=== PATIENT | female | born 1950 | race Caucasian/White ===

== ENCOUNTER 2020-04-09 01:29 | Inpatient (IN) | payer OTHER ==
[2020-04-09] VITALS (8 sets, daily range): BP systolic 107–228; BP diastolic 47–75
[~2020-04-09] VITALS: Ht 162.6 cm; Wt 99.8 kg
[2020-04-09 02:34] LABS: ABSOLUTE NEUTROPHILS 6.7 thou/uL (1.4-8.2); BASOPHILS 0.4 % (0.0-2.0); HEMATOCRIT 26.5 % (37.0-47.0); HEMOGLOBIN 8.6 gm/dL (12.0-15.0); LYMPHOCYTES 11.8 % (24.0-44.0); MCH 25.8 pg (26.0-34.0); MCHC 32.5 g/dL (28.0-37.0); MCV 79.2 fL (80.0-100.0); MONOCYTES 7.8 % (1.0-8.0); PLATELET COUNT 187 thou/uL (150-400); RBC 3.35 mil/uL (4.20-5.00); RDW 18.1 % (10.5-14.5); WBC 8.5 thou/uL (4.0-11.0)
[2020-04-09 02:43] LABS: ANION GAP 10 mmol/L (7-16); BUN 32 mg/dL (7-18); CALCIUM 8.1 mg/dL (8.5-10.1); CHLORIDE 108 mmol/L (98-107); CO2 25 mmol/L (21-32); CREATININE 2.6 mg/dL (0.6-1.0); GLUCOSE 115 mg/dL (74-106); POTASSIUM 4.1 mmol/L (3.5-5.1); SODIUM 143 mmol/L (136-145)
[2020-04-09 02:53] LABS: ALBUMIN 2.3 g/dL (3.4-5.0); DIRECT BILIRUBIN < 0.1 mg/dL (<0.1-0.2); SGOT 23 U/L (15-37); SGPT 25 U/L (30-65); TOTAL BILIRUBIN 0.2 mg/dL (0.2-1.0); TOTAL PROTEIN 6.6 g/dL (6.4-8.2); TROPONIN-I <0.06 ng/mL (<0.06)
[2020-04-09] MEDS ORDERED: TIZANIDINE4 MG/1 TA1 PO (04:00)
[2020-04-09] MEDS ORDERED: AMLODIPINE BESY10 MG PO (04:01)
[2020-04-09] MEDS ORDERED: EUTHYROX50 MCG PO (04:01)
[2020-04-09] MEDS ORDERED: HYDROCODON-ACE1 EAC7 PO (04:01)
[2020-04-09] MEDS ORDERED: BUMEX2 MG PO (04:02)
[2020-04-09] MEDS ORDERED: K-DUR 20 MEQ T20 MEQ PO (04:34)
[2020-04-09] MEDS ORDERED: LOSARTAN POTAS100 MG PO (04:34)
--- NOTE | 2020-04-09 16:56 | NUR ---
PATIENT ARRIVED FROM ED VIA W/C, ALERT AND ORIENTED X4.BP ELEVATED, OTHER VSS. DR PLUMMER SEEN PATIENT, AND PATIENT BP MEDS RESUMED AND PRN BP MEDS GIVEN. ADMISION COMPLETED AND NEW POC INITIATED.
[2020-04-10 00:09] VITALS: BP 176/70
[2020-04-10 04:40] VITALS: BP 178/66
[2020-04-10 05:51] LABS: HEMATOCRIT 24.2 % (37.0-47.0); HEMOGLOBIN 7.9 gm/dL (12.0-15.0); MCH 25.9 pg (26.0-34.0); MCHC 32.7 g/dL (28.0-37.0); MCV 79.3 fL (80.0-100.0); RBC 3.05 mil/uL (4.20-5.00); WBC 7.7 thou/uL (4.0-11.0)
[2020-04-10 05:58] LABS: CALCIUM 7.9 mg/dL (8.5-10.1); CREATININE 2.8 mg/dL (0.6-1.0); MAGNESIUM 1.9 mg/dL (1.8-2.4); POTASSIUM 3.7 mmol/L (3.5-5.1)
[2020-04-10 07:30] VITALS: BP 173/85
--- NOTE | 2020-04-10 09:12 | 2DMMODE ---
[facility] [place] [address] 2 D/M-MODE ECHOCARDIOGRAM Name: BRAYAN BARRIOS Room #: 200-I ADM IN M.R.#: [id number] Admission: 04/09/20 Attend Phys: Slime Wright Discharge: Date of : 46 Report #: [id number] THIS REPORT FOR: cc: [facility] - Clinic physician unknown [facility] - Clinic physician unknown Joo Bah MD [facility] ~ APPROVED REPORT Study performed: 04/09/2020 11:18:23 EXAM: Comprehensive 2D, Doppler, and color-flow Echocardiogram Patient Location: In-Patient Room #: 200 Status: routine BSA: 2.06 HR: 80 bpm BP: 196/64 mmHg Rhythm: NSR Other Information Study Quality: Good Risk Factors: Cardiac Risk Factors: HTN, Diabetes (insulin) 2D Dimensions RVDd: 39.04 mm IVSd: 14.77 (7-11mm) LVOT Diam: 18.37 (18-24mm) LVDd: 54.19 mm PWd: 13.42 (7-11mm) Ascending Ao: 28.03 (22-36mm) LVDs: 23.22 (25-40mm) Left Atrium: 46.88 (27-40mm) Aortic Root: 25.90 mm Volumes Left Atrial Volume (Systole) Single Plane 4CH: 73.98 mL Single Plane 2CH: 53.45 mL Aortic Valve AoV Peak Pasquale.: 2.26 m/s AO Peak Gr.: 20.34 mmHg AO Mean Gr.: 9.38 mmHg AO V2 Mean: 1.43 m/s AO V2 VTI: 45.61 cm [facility] [address] [place] [address] 2 D/M-MODE ECHOCARDIOGRAM Name: BRAYAN BARRIOS Room #: 200-I [facility] IN [facility].#: [id number] Admission: 04/09/20 Attend Phys: Slime Bowman Oct Discharge: Date of : 46 Report #: [id number] Mitral Valve E/A Ratio: 1.1 MV Decel. Time: 268.78 ms MV E Max Pasquale.: 1.44 m/s MV A Pasquale.: 1.33 m/s MV PHT: 77.95 ms Pulmonary Valve PV Peak Pasquale.: 1.56 m/s PV Peak Gr.: 9.83 mmHg MO End Vmax: 1.24 m/s Pulmonary Vein P Vein S: 0.85 m/s P Vein D: 0.76 m/s P Vein S/D Ratio: 1.12 Tricuspid Valve TR Peak Pasquale.: 3.23 m/s TR Peak Gr.: 41.82 mmHg Left Ventricle Left ventricle is borderline dilated. Mild to moderate concentric left ventricular hypertrophy. The left ventricular systolic function is normal. The left ventricular ejection fraction is within the normal range. LVEF is 60-65%. Grade I - abnormal relaxation pattern. Right Ventricle The right ventricle is normal size. The right ventricular systolic function is normal. Atria Left atrium is moderately dilated. Right atrium size is normal. Aortic Valve The aortic valve is normal in structure. No aortic regurgitation is present. There is no aortic valvular stenosis. Mitral Valve The mitral valve is normal in structure. Trace to mild mitral regurgitation. No evidence of mitral valve stenosis. Tricuspid Valve The tricuspid valve is normal in structure. Mild tricuspid [facility] [address] [place] [address] 2 D/M-MODE ECHOCARDIOGRAM Name: BRAYAN BARRIOS Room #: 200-I [facility] IN M.R.#: [id number] Admission: 04/09/20 Attend Phys: Slime Ramos Discharge: Date of : 46 Report #: [id number] regurgitation. Estimated PAP 51 mmHg. Pulmonic Valve The pulmonary valve is normal in structure. Trace pulmonic regurgitation. Great Vessels The aortic root is normal in size. IVC is normal in size and collapses <50% with inspiration. Pericardium Mild to Moderate circumferential pericardial effusion. There is variation in mitral and tricuspid inflows and IVC appears partially responsive. No diastolic collapse of the RV free wall. <Conclusion> Left ventricle is borderline dilated. Mild to moderate concentric left ventricular hypertrophy. LVEF is 60-65%. Grade I - abnormal relaxation pattern. The right ventricle is normal size. Left atrium is moderately dilated. The aortic valve is normal in structure. Trace to mild mitral regurgitation. Mild tricuspid regurgitation. Estimated PAP 51 mmHg. The aortic root is normal in size. Mild to Moderate circumferential pericardial effusion. There is variation in mitral and tricuspid inflows and IVC appears partially responsive. No diastolic collapse of the RV free wall. <ELECTRONICALLY SIGNED> By: Joo Bah MD, FACC 04/10/20911 1 1 Joo Bah MD, FACC /INF
[2020-04-10 11:16] LABS: URINE BILIRUBIN NEGATIVE (Negative); URINE BLOOD NEGATIVE (Negative); URINE CLARITY CLEAR; URINE COLOR YELLOW; URINE GLUCOSE-RANDOM* NEGATIVE (Negative); URINE KETONES NEGATIVE (Negative); URINE LEUKOCYTES NEGATIVE (Negative); URINE NITRITE NEGATIVE (Negative); URINE PROTEIN (DIPSTICK) 3+ (Negative); URINE SPECIFIC GRAVITY 1.025 (1.005-1.035); URINE UROBILINOGEN 0.2 E.U./dl (0.2-1.0)
[2020-04-10 11:22] LABS: URINE CREATININE-RANDOM* 83.8 mg/dL; URINE PROTEIN-RANDOM* 321.9 mg/dL (<11.9)
[2020-04-10 12:35] LABS: FINE GRANULAR CASTS 0-3 Few /LPF (None Seen); SQUAMOUS >10 Many /LPF (0-3)
[2020-04-10 12:36] VITALS: BP 177/83
[2020-04-10 12:37] LABS: CRYSTALS None Seen /LPF (None Seen); URINE RBC None Seen /HPF (0-2); URINE WBC 0-5 Rare /HPF (0-5)
[2020-04-10 12:38] LABS: BACTERIA 1-9 Few /HPF (None Seen)
--- NOTE | 2020-04-10 15:06 | NUR ---
ASSUMED CARE AT SHIFT CHANGE, ALERT AND ORIENTED X4. SR ON THE MONIROT SBP REMAINS 170, AND DR PLUMMER AND WILLIE ARE AWARE, AND MEDS ADJUSTED. DENIES ANY DISCOMFORT,WILL CONTINUE WITH POC AND MONITOR BP.
[2020-04-10 16:04] VITALS: BP 149/74
[2020-04-10 20:08] VITALS: BP 159/66
--- NOTE | 2020-04-11 05:08 | NUR ---
PT IS ALERT AND ORIENTED X4. LUNG ARE CLEAR TO DIMIISHED. ABDOMEN IS ROUND AND SOFT. USES CANE TO BATHROOM WITH MINIMAL ASSISTANCE NEEDED. DENIES ANY PAIN ISSUES. PT HAS 2 -3 PLUS BILATERAL PEDAL EDEMA NOTED. PT FEELS THOUGH HER EDEMA IS GOING DOWN WITH LASIX SHE IS GETTING. BLOOD PRESSURE HAS IMPORVED. CALL LIGHT WITHIN REACH IF NEEDS ASSISTANCE.
[2020-04-11 05:55] VITALS: BP 170/56
[2020-04-11 06:08] LABS: CREATININE 3.3 mg/dL (0.6-1.0); PHOSPHORUS 5.3 mg/dL (2.5-4.9); POTASSIUM 3.5 mmol/L (3.5-5.1)
[2020-04-11 07:20] VITALS: BP 169/65
--- NOTE | 2020-04-11 08:00 | EKG ---
[facility] [place] [address] ELECTROCARDIOGRAM REPORT Name: BRAYAN BARRIOS Room #: 200-I ADM IN M.R.#: [id number] Admission: 04/09/20 Attend Phys: Slime Wright Discharge: Date of : 46 Report #: [id number] THIS REPORT FOR: cc: [facility] - Clinic physician unknown [facility] - Clinic physician unknown Pratik Mcleod MD [facility] ~ THIS REPORT FOR: //name// 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
[2020-04-11 11:45] VITALS: BP 146/58
[2020-04-11 15:30] VITALS: BP 158/77
--- NOTE | 2020-04-11 16:51 | NUR ---
ASSUMED CARE PT SHIFT CHANGE. ASSESSMENTS CHARTED.MEDS GIVEN PER OCT. PT ALERT AND ORIENTED. VSS. DENIES PAIN. O2 SATS WNL ON ROOM AIR. PT UP INDEPENDENT TOLERATING WELL.
--- NOTE | 2020-04-11 17:10 | NUR ---
ASSUMED CARE PT SHIFT CHANGE. ASSESSMENTS CHARTED. MEDS GIVEN PER OCT. PT ALERT AND ORIENTED.VSS. DENIES PAIN. O2 SATS WNL ON RA. DENIES SOB. PT UP INDEPENDENT TOLERATING WELL. 24 HR URINE ORDERED, PT UNDERSTANDING AND FOLLOWING. PT DIURESING APPROPRIATELY. SPOUSE VISITED WITH PT AT BEDSIDE. PT CURRENTLY RESTING UP IN CHAIR, DENIES NEEDS. WILL CONTINUE TO MONITOR. WILL PASS ON REPORT TO SHARYN ALTMAN.
[2020-04-11 19:30] VITALS: BP 149/52
[2020-04-12 03:30] VITALS: BP 166/72
--- NOTE | 2020-04-12 03:38 | NUR ---
assumed pt care at the change of shift, pt is awake, alert and orientedx4, sr on the monitor, vss, assessments as charted, 24hr urine collection in place, denies pain or sob, upadlib to the bathroom, pt steady, no acute distress noted, will continue to monitor
[2020-04-12 06:02] LABS: ALBUMIN 2.1 g/dL (3.4-5.0); CALCIUM 7.8 mg/dL (8.5-10.1); CREATININE 3.6 mg/dL (0.6-1.0); PHOSPHORUS 5.3 mg/dL (2.5-4.9); POTASSIUM 3.6 mmol/L (3.5-5.1)
[2020-04-12 07:58] VITALS: BP 145/54
[2020-04-12 08:53] LABS: COLLECTION DURATION 24 hours; TOTAL VOLUME 1250 mL
[2020-04-12 09:07] LABS: URINE PROTEIN (MG/DL) > 250.0 mg/dL; URINE PROTEIN mg/24 hr ND mg/24hr (<149.1)
[2020-04-12 11:10] VITALS: BP 149/52
--- NOTE | 2020-04-12 14:58 | NUR ---
Met with patient who admits with CHF. She resides in independent home with spouse. Multiple steps in home. 6 steps to enter from garage, 6 steps to kitchen 6 steps to bedroom. Patient reports she takes rest breaks and does not do 18 steps at once. She uses her cane to assist up steps. Spoke with physical therapy who reports patient may benefit with a walker for community. Sp with [facility] who can issue walker at ct. Patient reports she does cooking and spouse does laundry. They have been looking at [facility]. Has supportive son and dtr. PCP Dr Endy Abel. THerapy has s/o. Casemgt following
[2020-04-12 15:35] VITALS: BP 156/65
--- NOTE | 2020-04-12 17:51 | NUR ---
ASSUMES CARE AT 1345. ASSESSMENT CHARTED - MEDS PER MAR - PT UP TO THE RECLINER AND AMBULATING TO THE BATHROOM. NO CO'S OF PAIN OR NAUSEA. KODY DIET AND FLUIDS. PT WITH SHORTNESS OF BREATH WITH EXERTION. NO CO'S AT THE PRESENT TIME. STATES SHE IS COMFORTABLE AT THE PRESENT TIME.
[2020-04-12 19:43] VITALS: BP 156/59
--- NOTE | 2020-04-13 02:54 | NUR ---
PT ALERT AND ORIENTED. VITALS STABLE. DENIES CHEST. PT VOIDING TO THE BATHROOM. SOB WITH AMBULATION. NO OTHER EVENTS OVERNIGHT.
[2020-04-13 04:00] VITALS: BP 164/64
[2020-04-13 06:09] LABS: ALBUMIN 2.2 g/dL (3.4-5.0); CALCIUM 7.6 mg/dL (8.5-10.1); CREATININE 3.9 mg/dL (0.6-1.0); PHOSPHORUS 5.4 mg/dL (2.5-4.9); POTASSIUM 3.3 mmol/L (3.5-5.1)
[2020-04-13 08:09] VITALS: BP 167/81
[2020-04-13 11:18] VITALS: BP 151/59
[2020-04-13 12:07] LABS: URINE BILIRUBIN NEGATIVE (Negative); URINE BLOOD TRACE (Negative); URINE CLARITY CLEAR; URINE COLOR YELLOW; URINE GLUCOSE-RANDOM* NEGATIVE (Negative); URINE KETONES NEGATIVE (Negative); URINE LEUKOCYTES NEGATIVE (Negative); URINE NITRITE NEGATIVE (Negative); URINE PROTEIN (DIPSTICK) 3+ (Negative); URINE SPECIFIC GRAVITY 1.025 (1.005-1.035); URINE UROBILINOGEN 0.2 E.U./dl (0.2-1.0)
[2020-04-13 12:44] LABS: BACTERIA 1-9 Few /HPF (None Seen); CASTS None Seen /LPF (None Seen); SQUAMOUS 4-10 Moderate /LPF (0-3); URINE RBC None Seen /HPF (0-2); URINE WBC 0-5 Rare /HPF (0-5)
[2020-04-13 12:45] LABS: CRYSTALS None Seen /LPF (None Seen)
[2020-04-13 15:33] VITALS: BP 162/52
[2020-04-13 19:20] VITALS: BP 179/66
--- NOTE | 2020-04-13 19:21 | NUR ---
assessment as charted - meds as per oct - pt up simón in room, steady on feet. bernard diet and fluids stated stomach a little upset this afternoon - had a bm and feels better now. no co's of pain. ankles/ legs remain swollen. continues to have shortness of breath with exertion. no co's at the present time.
[2020-04-13 22:57] VITALS: BP 174/66
[2020-04-14 03:40] VITALS: BP 169/58
[2020-04-14 05:29] LABS: ALBUMIN 2.1 g/dL (3.4-5.0); CALCIUM 7.8 mg/dL (8.5-10.1); CREATININE 3.7 mg/dL (0.6-1.0); POTASSIUM 3.5 mmol/L (3.5-5.1)
--- NOTE | 2020-04-14 05:46 | NUR ---
ASSIME CARE 1900. PT/VITALS STABLE. DENEIS ANY PAIN. GOOD TOLERANCE TO ACTIVITY. UP AD HARRY. SR/SB ON MONITOR. NO DISTRESS NOTED. ASSESSMENT AD CHARTED. PROGRESSING WELL WITH POC. PLAN IS TO CONTINUE TO DIURESE AND MONITOR AND STABILIZE KIDNEY FUNCTION. WILL CONTINUE TO MONITOR ANF FOLLOW WITH POC
[2020-04-14 07:30] VITALS: BP 172/66
--- NOTE | 2020-04-14 10:39 | NUR ---
Assess due to class III extreme obesity, BMI 41. Admit with acute onset CHF. Significant 3+ bilateral leg and ankle edema. Diuresing. Pt states she has been avoiding high Na foods but unable to recall what her daily limit of Na should be. Provided nutrition education for 2g Na diet and provided nutrition information. otherwise, eating well and on heart healthy diet order. Low nutrition risk
--- NOTE | 2020-04-14 13:56 | NUR ---
Cont plan for home at dc. [facility] will issue a walker at dc. Anabell with [facility] [phone]. Patient not stable for discharge due to creatine.
[2020-04-14 17:00] VITALS: BP 153/61
--- NOTE | 2020-04-14 18:53 | NUR ---
NO EVENTS THROUGHOUT SHIFT. PT UP AD HARRY TO BATHROOM AND TO AMBULATE IN ROOM. PT AMBULATED DOWN KNAPP WITH USE OF CANE AND STANDBY ASSIT BY NURSE.
[2020-04-14 20:25] VITALS: BP 186/64
--- NOTE | 2020-04-15 02:46 | NUR ---
ASSESSMENTS CHARTED, MEDS CHARTED GIVEN. PATIENT RESTING IN BED DURING SHIFT. UP AT HARRY TO THE BATHROOM. DENIED PAIN. C/O MUSCLE SPASMS IN BILATERAL LOWER BACK WITH ACTIVATION OF SCIATICA IN LEFT LEG. BLOOD PRESSURE VERY HIGH AT FIRST CHECK, HYDRALAZINE GIVEN. PATIENT DIURESING. PLAN OF CARE IS TO LOWER CREATININE LEVEL EQUAL OR LOWER THAN 2 BEFORE DISCHARGE.
[2020-04-15 04:54] VITALS: BP 175/56
[2020-04-15 05:19] LABS: ALBUMIN 2.2 g/dL (3.4-5.0); CALCIUM 8.2 mg/dL (8.5-10.1); MAGNESIUM 1.9 mg/dL (1.8-2.4); PHOSPHORUS 4.5 mg/dL (2.5-4.9); POTASSIUM 3.2 mmol/L (3.5-5.1)
[2020-04-15 07:35] VITALS: BP 181/60
--- NOTE | 2020-04-15 11:57 | NUR ---
navdeep updated roxy that pt is not d/c'g today. roxy approved PT/OT to provide pt with a walker, if the pt should d/c over the weekend.
[2020-04-15 17:00] VITALS: BP 188/70
--- NOTE | 2020-04-15 18:35 | NUR ---
ASSUMED CARE AT SHIFT CHANGE, ALERT AND ORIENTED X4. BP 188-173/60-78 AND OTHER VSS, MEDICATED SCHEDULLED NEPHROLOGY NOTIFIED, AND BP MEDS GIVEN. C/O SOB THROUGH THE DAY, O2 SAT AND HR WITHIN NORMAL. REPORTED NOW THAT SHE HAS PAIN TO LT HIP, BUT REFUSED TO TAKE ANYTHING AND STATED THAT SHE WAIT AND TAKE PAIN MEDS AT BED TIME.WALKED THE HALLWAY WITH WALKER,COULDN'T TOLERAT WALKING, WALKED FOR 5 MINUTES, HR AND O2 WNL. WILL CONTINUE WITH POC
[2020-04-15 20:00] VITALS: BP 157/55
[2020-04-16] VITALS (7 sets, daily range): BP systolic 97–174; BP diastolic 46–94
--- NOTE | 2020-04-16 03:33 | NUR ---
ASSESSMENTS CHARTED, MEDS CHARTED GIVEN. PATIENT RESTING IN BED DURING SHIFT. C/O MUSCLE SPASMS AND BACK PAIN DURNG SHIFT. PER NOTES PATIENT MAY BE DISCHARGED TODAY AND CONTINUE BUMEX TREATMENTS AT HOME TO REDUCE CREATININE LEVELS AND FOLLOW UP WITH DR. JIMENEZ. PATIENT IS WORRIED THAT HER KIDNEYS ARE FAILING HER. PATIENT DOES NOT WANT TO BE DISCHARGED ONLY TO COME BACK IN A COUPLE OF DAYS WORSE THAN BEFORE. FALL PRECAUTIONS IN PLACE DURING SHIFT.
[2020-04-16 05:20] LABS: ALBUMIN 2.1 g/dL (3.4-5.0); CREATININE 3.5 mg/dL (0.6-1.0); PHOSPHORUS 4.8 mg/dL (2.5-4.9); POTASSIUM 3.2 mmol/L (3.5-5.1)
[2020-04-16 09:13] LABS: BE(vivo) -1.1 mmol/L (-2 to +3); HCO3 21.3 mmol/L (22.0-26.0); PCO2 27.4 mmHg (35.0-45.0); PO2 56.1 mmHg (80.0-100.0); pH 7.509 (7.360-7.450); sO2 92.3 % (92.0-98.0)
--- NOTE | 2020-04-16 10:47 | NUR ---
ASSESSMENT CHARTED. PT ALERT AND ORIENTED. REPORT HAVING SOA. STATING THAT SHE HAD HARD TIME BREATHING. DR ESTES NOTIFIED. NEW ORDERS RECEIVED. RT TREATMENT PROVIDED. CHEST XRAY ORDERED. NEW ORDERS GIVEN TO CHECK FOR COVID SYMPTOMATIC. PT TRANSFERED TO ROOM 354. REPORT CALLED IN TO MAYDA ALTMAN.
--- NOTE | 2020-04-16 18:35 | NUR ---
ASSUMED CARE OF PT UPON ARRIVAL TO UNIT THIS AM. PT AOX4 IN NO ACUTE DISTRESS. UP AD HARRY W/ CANE - GAIT STEADY. 2L NC PRN FOR COMFORT - SOME SOA W/ ACTIVITY. VITALS STABLE. DIURETICS GIVEN PER ORDER. WCM.
[2020-04-17 04:10] VITALS: BP 192/72
[2020-04-17 05:07] VITALS: BP 174/65
[2020-04-17 05:43] LABS: HEMATOCRIT 22.6 % (37.0-47.0); HEMOGLOBIN 7.4 gm/dL (12.0-15.0); MCH 26.2 pg (26.0-34.0); MCHC 32.8 g/dL (28.0-37.0); MCV 79.7 fL (80.0-100.0); RBC 2.84 mil/uL (4.20-5.00); RDW 17.5 % (10.5-14.5); WBC 7.4 thou/uL (4.0-11.0)
--- NOTE | 2020-04-17 05:50 | NUR ---
Slept intermittently during the night. Tolerating room air well with O2 sat in the upper 90's at HS. She did wear oxygen at HS while asleep. Reported shortness of breath with exertion. Cont. on enhanced precaution pending COVID test results. Afebrile. Up ad simón in room with steady gait. Voiding per bathroom.
[2020-04-17 05:58] LABS: ALBUMIN 2.1 g/dL (3.4-5.0); CALCIUM 8.1 mg/dL (8.5-10.1); CREATININE 3.3 mg/dL (0.6-1.0); PHOSPHORUS 5.6 mg/dL (2.5-4.9); POTASSIUM 3.4 mmol/L (3.5-5.1)
[2020-04-17 07:27] VITALS: BP 169/50
[2020-04-17 11:14] VITALS: BP 161/67
[2020-04-17 15:54] VITALS: BP 179/53
[2020-04-17 16:18] LABS: FOLIC ACID 32.8 ng/mL (8.6-58.9)
[2020-04-17 16:24] LABS: % SATURATION 13 % (20-39); IRON 20 ug/dL (50-170); TIBC 158 ug/dL (250-450)
--- NOTE | 2020-04-17 18:43 | NUR ---
ASSUMED CARE OF PT AT 0700. PT AOX4 IN NO ACUTE DISTRESS. UP AD HARRY W/ STEADY GAIT. HYPERTENSIVE - MEDS ADJUSTED BY PHYSICIAN. OK TO D/C ENHANCED PERCAUTIONS PER ID. ANTICIPATE D/C IN AM.
[2020-04-17 20:29] VITALS: BP 167/55
[2020-04-18] VITALS (7 sets, daily range): BP systolic 149–169; BP diastolic 48–57
--- NOTE | 2020-04-18 03:35 | NUR ---
Patient progressing towards outcome goals.Still complaining of feeling slightly winded with any activity and wear 2L/NC as needed. Zanaflex given for muscle aches with relief but is causing patient to sweat a lot. BP improving with medication adjustment. Afebrile. Low fall risks, up adlib within room without difficulty.
--- NOTE | 2020-04-18 03:38 | NUR ---
Patient progressing well towards outcome goals. Oxygenation optimal on room air. Trach has passey patsy valve allowing better comminucation with patient. Able to use call light appropriately for needs. Tolerating tube feedings. Multiple loose stools this morning, will hold morning Reglan. Awaiting placement.
[2020-04-18 04:14] LABS: CALCIUM 7.9 mg/dL (8.5-10.1); CREATININE 3.5 mg/dL (0.6-1.0); PHOSPHORUS 5.9 mg/dL (2.5-4.9); POTASSIUM 3.6 mmol/L (3.5-5.1)
--- NOTE | 2020-04-18 17:41 | NUR ---
PT IS FROM HOME WITH POSSIBLE DISCHARGE TOMORROW MARYJANE...FELT VERY DIZZY AND TIRED THIOLety TAYLOR BUT AFTER SOME REST AND IRON INFUSION FEELS A LITTLE BETTER...ORTHOSTATIC BP NEGATIVE...
[2020-04-19] VITALS (7 sets, daily range): BP systolic 168–178; BP diastolic 48–58
--- NOTE | 2020-04-19 04:07 | NUR ---
Patient making slow progress towards outcome goals. Oxygenation optimal on room air, shortness of brath with activity but has not required oxygen. No dizziness. Rhythm stable. SBP 150-160's. Up adlib without difficulty. Gait steady.
[2020-04-19 05:18] LABS: ALBUMIN 2.1 g/dL (3.4-5.0); CALCIUM 8.1 mg/dL (8.5-10.1); CREATININE 3.3 mg/dL (0.6-1.0); PHOSPHORUS 5.3 mg/dL (2.5-4.9)
--- NOTE | 2020-04-19 05:40 | NUR ---
Patient diuresing from Aldactone and Torsemide.
[2020-04-19] MEDS ORDERED: TORSEMIDE20 MG PO (10:52)
[2020-04-19] MEDS ORDERED: SPIRONOLACTONE25 M1 PO (10:53)
[2020-04-19] MEDS ORDERED: BYSTOLIC20 MG PO (10:53)
--- NOTE | 2020-04-20 08:53 | HC ---
[facility] [place] [address] CONSULTATION Name: BRAYAN BARRIOS Room #: 354-[facility] IN M.R.#: [id number] Admission: 04/09/20 Attend Phys: Slime Wright Discharge: 04/19/20 Date of : 46 Report #: [id number] THIS REPORT FOR: cc: [facility] - Clinic physician unknown [facility] - Clinic physician unknown Augustus Brady MD ~ CC: DALILA unknown Slime Wright REASON FOR PRESENTATION: Shortness of breath and lower extremity swelling. HISTORY OF PRESENT ILLNESS: A 69-year-old with past medical history of chronic kidney disease, but she does not know the exact numbers of her kidney function. She sees Dr. Rudolph with [facility]. She had a kidney biopsy done few years ago and this was nonconclusive. She was told by her supervisor contact and service clerks a few weeks ago to increase the dose of her Bumex to 3 times a week. She is known to have multiple myeloma, status post bone marrow transplant. She was supposed to have another kidney biopsy repeated in the next few days because of worsening proteinuria as her Nephrology informed her. She presented with weight gain, lower extremity swelling, shortness of breath. She was found to have an extremely elevated blood pressure with pulmonary edema and diffuse bilateral lower extremity edema. Creatinine on presentation 2.6 and had risen up to 2.8. No urine studies are available. PAST MEDICAL HISTORY: 1. Multiple myeloma, status post bone marrow transplant x 2. 2. Hypertension. 3. Chronic kidney disease with unknown baseline. 4. Status post kidney biopsy nonconclusive. 5. . 6. Hysterectomy. SOCIAL HISTORY: No drug or alcohol abuse. FAMILY HISTORY: Colon cancer and lung cancer present in the family. ALLERGIES: Seasonal allergies. REVIEW OF SYSTEMS: GENERAL: No fever or chills. CARDIOVASCULAR: No chest pain or palpitation. PULMONARY: Significant for shortness of breath and dyspnea on exertion. GASTROINTESTINAL: No nausea or vomiting. GENITOURINARY: As per the history of present illness. MUSCULOSKELETAL: Diffuse bilateral lower extremity swelling. NEUROLOGICAL: No headache, no dizziness. [facility] [address] [place] [address] CONSULTATION Name: BRAYAN BARRIOS Room #: 354-[facility] IN ..#: [id number] Admission: 04/09/20 Attend Phys: Slime Wright Discharge: 04/19/20 Date of : 46 Report #: [id number] PHYSICAL EXAMINATION: VITAL SIGNS: Temperature 36.9, blood pressure 178/66, pulse rate 75, respiratory rate 18. HEAD AND NECK: No jugular venous distention, no bruit, no thyromegaly. CHEST: No crackles. CARDIOVASCULAR: No rub detected. ABDOMEN: Soft, nontender. LOWER EXTREMITIES: +3 edema. LABORATORY DATA: Sodium 143, potassium 3.7, BUN 34, creatinine 2.8, magnesium 1.9, albumin 2.3. IMPRESSION AND PLAN: 1. Chronic kidney disease, unknown baseline. 2. Status post kidney biopsy few years ago. 3. Anasarca. 4. Nephrotic range proteinuria per the patient's history. 5. Multiple myeloma, status post bone marrow transplantation. 6. We will initiate appropriate workup for the patient including urine protein to creatinine ratio. We will need to reach out to the patient's supervisor contact and service clerks regarding her recent labs. As for now, we will continue with the diuresis. 7. Resume losartan. 8. With her multiple myeloma and the worsening proteinuria, relapse of myeloma versus other diseases related to myeloma are in the differential diagnosis; however, the patient tells me that she recently saw her winch stripper back in December and she was reassured that everything is looking good from the multiple myeloma perspective. 9. Salt restrictions. 10. Daily body weight. 11. Blood pressure control. 12. We will continue to follow. <ELECTRONICALLY SIGNED> By: Augustus Brady MD 04/20/20 0853 0749 [id number] Augustus Brady MD /nt
== END 2020-04-19 12:30 | disposition home or self-care (01) | DRG 291 ==
LOC: ER 01:29 → EROBS 04:16 → 2N 04:16 → 3W 04:16 → 2N 07:14 → 3W 04-16 10:32
PROVIDERS: Emergency Medicine; Hospitalist; Internal Medicine; Internal Medicine Nephrology; Nurse Practitioner Family; ADMIT Hospitalist; ATTEND Hospitalist
DX: I13.0 Hypertensive heart and chronic kidney disease with heart failure and stage 1 through stage 4 chronic kidney disease, or unspecified chronic kidney disease (principal); J96.90 Respiratory failure, unspecified, unspecified whether with hypoxia or hypercapnia; E43 Unspecified severe protein-calorie malnutrition; I50.43 Acute on chronic combined systolic (congestive) and diastolic (congestive) heart failure; I31.3 Pericardial effusion (noninflammatory); N17.9 Acute kidney failure, unspecified; J81.1 Chronic pulmonary edema; I16.1 Hypertensive emergency; N04.9 Nephrotic syndrome with unspecified morphologic changes; N18.3 Chronic kidney disease, stage 3 (moderate); J20.9 Acute bronchitis, unspecified; I16.0 Hypertensive urgency; J30.2 Other seasonal allergic rhinitis; K21.9 Gastro-esophageal reflux disease without esophagitis; E03.9 Hypothyroidism, unspecified; E66.9 Obesity, unspecified; I08.1 Rheumatic disorders of both mitral and tricuspid valves; G47.00 Insomnia, unspecified; M16.12 Unilateral primary osteoarthritis, left hip; E87.6 Hypokalemia; D50.9 Iron deficiency anemia, unspecified; E87.70 Fluid overload, unspecified; Z20.828 Contact with and (suspected) exposure to other viral communicable diseases; Z90.710 Acquired absence of both cervix and uterus; Z98.891 History of uterine scar from previous surgery; Z68.37 Body mass index [BMI] 37.0-37.9, adult; Z79.899 Other long term (current) drug therapy; Z88.8 Allergy status to other drugs, medicaments and biological substances
CPT/HCPCS: 10081; 10779; 10879

== ENCOUNTER → 2020-05-05 | Outpatient (CLI) | payer OTHER ==
[~2020-05-05] MED LIST: AMLODIPINE BESY10 MG PO; BUMEX2 MG PO; BYSTOLIC20 MG PO; EUTHYROX50 MCG PO; HYDROCODON-ACE1 EAC7 PO; K-DUR 20 MEQ T20 MEQ PO; LOSARTAN POTAS100 MG PO; SPIRONOLACTONE25 M1 PO; TIZANIDINE4 MG/1 TA1 PO; TORSEMIDE20 MG PO
== END ==
LOC: SJCVC 13:10
PROVIDERS: ATTEND Internal Medicine Cardiovascular Disease
DX: R94.31 Abnormal electrocardiogram [ECG] [EKG] (principal); I50.30 Unspecified diastolic (congestive) heart failure; I16.0 Hypertensive urgency; R00.1 Bradycardia, unspecified; E78.00 Pure hypercholesterolemia, unspecified; K21.9 Gastro-esophageal reflux disease without esophagitis; C90.01 Multiple myeloma in remission; Z79.899 Other long term (current) drug therapy

== ENCOUNTER → 2020-06-16 | Outpatient (CLI) | payer OTHER | LOC: SJCVCIMAG 08:46 | PROVIDERS: ATTEND Nurse Practitioner Adult Health | DX: I49.3 Ventricular premature depolarization (principal); I13.0 Hypertensive heart and chronic kidney disease with heart failure and stage 1 through stage 4 chronic kidney disease, or unspecified chronic kidney disease; I50.9 Heart failure, unspecified; N18.4 Chronic kidney disease, stage 4 (severe); E78.00 Pure hypercholesterolemia, unspecified; Z90.01 Acquired absence of eye; Z79.899 Other long term (current) drug therapy; Z86.79 Personal history of other diseases of the circulatory system ==

== ENCOUNTER → 2021-01-13 | Outpatient (CLI) | payer OTHER | LOC: SJCVCIMAG 09:49 | PROVIDERS: ATTEND Internal Medicine Cardiovascular Disease | DX: I07.1 Rheumatic tricuspid insufficiency (principal); R94.31 Abnormal electrocardiogram [ECG] [EKG]; E78.00 Pure hypercholesterolemia, unspecified; I13.2 Hypertensive heart and chronic kidney disease with heart failure and with stage 5 chronic kidney disease, or end stage renal disease; I50.30 Unspecified diastolic (congestive) heart failure; N18.6 End stage renal disease; R00.1 Bradycardia, unspecified; Z99.2 Dependence on renal dialysis; Z90.710 Acquired absence of both cervix and uterus; Z88.8 Allergy status to other drugs, medicaments and biological substances; Z79.899 Other long term (current) drug therapy; Z86.79 Personal history of other diseases of the circulatory system ==

== ENCOUNTER → 2021-05-24 | Outpatient (CLI) | payer OTHER | LOC: SJCVC 11:02 | PROVIDERS: ATTEND Internal Medicine Cardiovascular Disease | DX: R94.31 Abnormal electrocardiogram [ECG] [EKG] (principal); I48.91 Unspecified atrial fibrillation; I13.2 Hypertensive heart and chronic kidney disease with heart failure and with stage 5 chronic kidney disease, or end stage renal disease; N18.6 End stage renal disease; I50.30 Unspecified diastolic (congestive) heart failure; Z99.2 Dependence on renal dialysis; Z86.79 Personal history of other diseases of the circulatory system; E78.00 Pure hypercholesterolemia, unspecified; Z79.899 Other long term (current) drug therapy; Z88.1 Allergy status to other antibiotic agents; Z88.8 Allergy status to other drugs, medicaments and biological substances ==